=== PATIENT | male | born 1960 | race Caucasian/White ===

== ENCOUNTER 2023-02-16 03:38 | Inpatient (IN) | payer MEDICARE, MEDICAID ==
[~2023-02-16] VITALS: Ht 182.9 cm; Wt 88.9 kg
[2023-02-16] VITALS (10 sets, daily range): BP systolic 125–128; BP diastolic 60–98; PULSE 60–64; RESP 18–24; TEMP 97.2–97.5; O2SAT 94–99
[2023-02-16 04:23] LABS: Basophils # (auto) 0.1 10 ^3/uL (0-0.2); Eosinophils # (auto) 0 10 ^3/uL (0-0.8); Lymphocytes # (auto) 1.2 10 ^3/uL (0.4-5.4); Monocytes # (auto) 0.7 10 ^3/uL (0-1.3); Neutrophils % (auto) 78.9 % (37.0-80.0); Nucleated Red Blood Cells % 0.1 %
[2023-02-16 04:25] LABS: Eosinophils % (auto) 0.5 % (0.0-7.0); Hematocrit 43.3 % (41.0-53.0); Hemoglobin 13.9 g/dL (13.5-17.5); Lymphocytes % (auto) 12.4 % (10.0-50.0); Mean Corpuscular Hemoglobin 32.8 pg (28.0-32.0); Mean Corpuscular Hgb Conc. 32.2 g/dL (32.0-36.0); Monocytes % (auto) 7.2 % (0.0-12.0); Neutrophils # (auto) 7.8 10 ^3/uL (1.6-8.6); Red Blood Cells 4.24 10^6/uL (4.5-5.90); Red Cell Distribution Width 19.4 % (11.8-14.3); White Blood Cell 9.9 10^3/uL (4.4-10.8)
[2023-02-16 04:43] LABS: INR 1.53 (0.9-1.15); Partial Thromboplastin Time 30.9 SEC (24.5-34.5); Prothrombin Time 15.6 sec (9.3-11.8)
[2023-02-16 05:23] LABS: Alanine Aminotransferase 22 U/L (7-40); Albumin 4.3 g/dL (3.2-4.8); Alkaline Phosphatase 81 U/L (46-116); Anion Gap 10 (5-15); Aspartate Aminotransferase 24 U/L (13-40); BUN/Creatinine Ratio 15.1 (10.0-20.0); Bilirubin, Total 2.2 mg/dL (0.2-1.0); Blood Urea Nitrogen 28 mg/dL (9-23); Calcium 9.1 mg/dL (8.7-10.4); Carbon Dioxide 22 mmol/L (20-30); Chloride 110 mmol/L (98-107); Glucose 116 mg/dL (74-106); Magnesium 2.7 mg/dL (1.6-2.6); Potassium 3.7 mmol/L (3.5-5.1); Sodium 142 mmol/L (136-145)
[2023-02-16 05:24] LABS: Total Protein 6.9 g/dL (5.7-8.2)
[2023-02-16] MEDS ORDERED: FUROSEMIDE 40 MG/4 ML VIAL IV ONE (07:15)
[2023-02-16] MEDS ORDERED: LOSA50TA46 PO (09:00)
[2023-02-16] MEDS ORDERED: ATOR40TA52 PO (09:00)
[2023-02-16] MEDS ORDERED: SPIR25TA8 PO (09:00)
[2023-02-16] MEDS ORDERED: WARF4TAB69 PO (09:00)
[2023-02-16] MEDS ORDERED: METO25TA93 PO (09:00)
[2023-02-16] MEDS ORDERED: AMIO400T7 PO (09:00)
[2023-02-16] MEDS ORDERED: ACETAMINOPHEN 325 MG TAB PO PRN (09:00)
[2023-02-16] MEDS ORDERED: FUR20T PO (09:00)
[2023-02-16] MEDS ORDERED: WARF-111 PO (09:00)
[2023-02-16 09:18] LABS: Triglycerides 101 mg/dL (< 150)
[2023-02-16 09:19] LABS: LDL Cholesterol 70 mg/dL (< 100)
[2023-02-16 09:20] LABS: Cholesterol 106 mg/dL (< 200); HDL Cholesterol 24 mg/dL (40-59)
[2023-02-16] MEDS ORDERED: WARFARIN SODIUM 2 MG TAB PO SCH (10:00)
[2023-02-16] MEDS ORDERED: ENOXAPARIN SOD 40 MG/0.4 ML SYRINGE SC SCH (10:00)
[2023-02-16] MEDS ORDERED: PATIENTS OWN MEDICATION (Metoprolol Succinate (Metoprolol Succinate Er) 1 TAB) PO SCH (10:00)
[2023-02-16] MEDS ORDERED: PATIENTS OWN MEDICATION (Atorvastatin Calcium 1 TAB) PO SCH (10:00)
[2023-02-16] MEDS ORDERED: AMIODARONE HCL PO SCH (10:00)
[2023-02-16] MEDS: AMIODARONE HCL 200 MG TAB PO SCH (11:22)
[2023-02-16] MEDS: FUROSEMIDE 20 MG/2 ML VIAL IV SCH (11:22)
[2023-02-16] MEDS: LOSARTAN POTASSIUM 50 MG TAB PO SCH (11:22)
[2023-02-16] MEDS: METOPROLOL SUCCINATE XL 50 MG TAB PO SCH (11:23)
[2023-02-16 11:28] LABS: Urine Bacteria NONE SEEN /hpf (None Seen); Urine Blood Negative /uL (Negative); Urine Clarity Clear (Clear); Urine Color Yellow (Yellow); Urine Hyaline Cast MANY /lpf (0 - 2); Urine Mucus FEW (None Seen); Urine Protein, UAD 1+ (Negative); Urine Specific Gravity 1.022 (1.001-1.035); Urine WBC 1 /hpf (0 - 3); Urine pH 5.5 (5.0-8.0)
[2023-02-16] MEDS: LORazepam 0.5 MG TAB PO PRN (11:31)
[2023-02-16 11:51] LABS: Protein, Urine 54.7 mg/dL (0.0-11.9)
[2023-02-16 11:54] LABS: Creatinine, Urine 143.86 mg/dL (30.0-125.0)
[2023-02-16] MEDS ORDERED: WARFARIN SODIUM 2 MG TAB PO ONE (18:30)
[2023-02-16] MEDS: ALBUTEROL SULF 2.5 MG/0.5ML(0.5%) NEB SOLN NEB PRN (21:18)
[2023-02-16] MEDS: ATORVASTATIN 20 MG TAB PO SCH (21:42)
[2023-02-17] VITALS (10 sets, daily range): BP systolic 114–135; BP diastolic 81–97; PULSE 60–95; RESP 16–20; TEMP 97.4–98.7; O2SAT 60–99
[2023-02-17] MEDS: LORazepam 0.5 MG TAB PO PRN (01:59)
[2023-02-17 06:16] LABS: Anion Gap 11 (5-15); Carbon Dioxide 20 mmol/L (20-30); Chloride 109 mmol/L (98-107); Potassium 3.6 mmol/L (3.5-5.1); Sodium 140 mmol/L (136-145)
[2023-02-17 06:17] LABS: Calcium 8.8 mg/dL (8.7-10.4)
[2023-02-17 06:22] LABS: BUN/Creatinine Ratio 14.3 (10.0-20.0); Blood Urea Nitrogen 23 mg/dL (9-23); Glucose 88 mg/dL (74-106)
[2023-02-17 06:37] LABS: INR 1.48 (0.9-1.15); Partial Thromboplastin Time 30.3 SEC (24.5-34.5); Prothrombin Time 15.1 sec (9.3-11.8)
[2023-02-17 06:56] LABS: Basophils # (auto) 0.1 10 ^3/uL (0-0.2); Basophils % (auto) 0.7 % (0.0-2.0); Eosinophils # (auto) 0 10 ^3/uL (0-0.8); Eosinophils % (auto) 0.3 % (0.0-7.0); Hematocrit 40.3 % (41.0-53.0); Hemoglobin 13.3 g/dL (13.5-17.5); Lymphocytes % (auto) 9.6 % (10.0-50.0); Mean Corpuscular Hemoglobin 33.2 pg (28.0-32.0); Mean Corpuscular Volume 100.6 fL (80.0-100.0); Monocytes # (auto) 0.7 10 ^3/uL (0-1.3); Monocytes % (auto) 7.2 % (0.0-12.0); Neutrophils # (auto) 8.6 10 ^3/uL (1.6-8.6); Neutrophils % (auto) 82.2 % (37.0-80.0); Nucleated Red Blood Cells % 0.1 %; White Blood Cell 10.4 10^3/uL (4.4-10.8)
[2023-02-17] MEDS: AMIODARONE HCL 200 MG TAB PO SCH (10:17)
[2023-02-17] MEDS: LOSARTAN POTASSIUM 50 MG TAB PO SCH (10:17)
[2023-02-17] MEDS: METOPROLOL SUCCINATE XL 50 MG TAB PO SCH (10:18)
[2023-02-17] MEDS: FUROSEMIDE 20 MG/2 ML VIAL IV SCH (10:19)
[2023-02-17] MEDS ORDERED: FUROSEMIDE 20 MG/2 ML VIAL IV ONE (10:45)
[2023-02-17] MEDS: ALBUTEROL SULF 2.5 MG/0.5ML(0.5%) NEB SOLN NEB PRN (11:39)
[2023-02-17] MEDS ORDERED: WARFARIN SODIUM 5 MG TAB PO ONE (17:00)
[2023-02-17] MEDS: ONDANSETRON HCL 4 MG/2 ML VIAL IV PRN (21:27)
[2023-02-17] MEDS: MELATONIN 5 MG TAB PO SCH (22:00)
[2023-02-17] MEDS: ATORVASTATIN 20 MG TAB PO SCH (22:00)
[2023-02-18] VITALS (10 sets, daily range): BP systolic 105–129; BP diastolic 78–89; PULSE 60–63; RESP 16–22; TEMP 96–98.1; O2SAT 93–97
[2023-02-18] MEDS: ONDANSETRON HCL 4 MG/2 ML VIAL IV PRN (05:05)
[2023-02-18 06:13] LABS: Anion Gap 10 (5-15); Carbon Dioxide 23 mmol/L (20-30); Chloride 106 mmol/L (98-107); INR 1.8 (0.9-1.15); Partial Thromboplastin Time 32.2 SEC (24.5-34.5); Prothrombin Time 18.2 sec (9.3-11.8); Sodium 139 mmol/L (136-145)
[2023-02-18 06:19] LABS: BUN/Creatinine Ratio 18.4 (10.0-20.0); Glucose 100 mg/dL (74-106)
[2023-02-18 06:37] LABS: Calcium 8.8 mg/dL (8.7-10.4)
[2023-02-18 07:04] LABS: Blood Urea Nitrogen 34 mg/dL (9-23)
[2023-02-18] MEDS: FUROSEMIDE 40 MG/4 ML VIAL IV SCH (09:11)
[2023-02-18] MEDS: AMIODARONE HCL 200 MG TAB PO SCH (09:11)
[2023-02-18] MEDS: LOSARTAN POTASSIUM 50 MG TAB PO SCH (09:12)
[2023-02-18] MEDS: METOPROLOL SUCCINATE XL 50 MG TAB PO SCH (09:14)
[2023-02-18] MEDS ORDERED: PANTOPRAZOLE 40 MG TAB PO ONE (15:00)
[2023-02-18] MEDS ORDERED: MAALOX PLUS or MAALOX 30 ML PO PRN (15:00)
[2023-02-18] MEDS ORDERED: MAALOX PLUS or MAALOX 30 ML PO ONE (15:00)
[2023-02-18] MEDS ORDERED: WARFARIN SODIUM 2 MG TAB PO ONE (17:00)
[2023-02-18] MEDS: ATORVASTATIN 20 MG TAB PO SCH (22:32)
[2023-02-18] MEDS: MELATONIN 5 MG TAB PO SCH (22:32)
[2023-02-19] VITALS (8 sets, daily range): BP systolic 99–117; BP diastolic 75–84; PULSE 56–60; RESP 15–22; TEMP 36.8; O2SAT 92–97
[2023-02-19 06:58] LABS: Basophils # (auto) 0.1 10 ^3/uL (0-0.2); Basophils % (auto) 0.6 % (0.0-2.0); Eosinophils # (auto) 0.1 10 ^3/uL (0-0.8); Eosinophils % (auto) 0.7 % (0.0-7.0); Hematocrit 40.8 % (41.0-53.0); Hemoglobin 13.2 g/dL (13.5-17.5); Lymphocytes # (auto) 0.7 10 ^3/uL (0.4-5.4); Lymphocytes % (auto) 8.2 % (10.0-50.0); Mean Corpuscular Hemoglobin 32.7 pg (28.0-32.0); Mean Corpuscular Hgb Conc. 32.3 g/dL (32.0-36.0); Mean Corpuscular Volume 101.3 fL (80.0-100.0); Monocytes % (auto) 11.5 % (0.0-12.0); Neutrophils # (auto) 6.7 10 ^3/uL (1.6-8.6); Nucleated Red Blood Cells % 0.1 %; Red Blood Cells 4.03 10^6/uL (4.5-5.90); Red Cell Distribution Width 18.9 % (11.8-14.3); White Blood Cell 8.5 10^3/uL (4.4-10.8)
[2023-02-19 07:10] LABS: Chloride 104 mmol/L (98-107); Potassium 3.6 mmol/L (3.5-5.1); Sodium 137 mmol/L (136-145)
[2023-02-19 07:11] LABS: Anion Gap 9 (5-15); Calcium 8.5 mg/dL (8.7-10.4); Carbon Dioxide 24 mmol/L (20-30)
[2023-02-19 07:16] LABS: Glucose 101 mg/dL (74-106)
[2023-02-19 07:17] LABS: BUN/Creatinine Ratio 19.3 (10.0-20.0); Blood Urea Nitrogen 32 mg/dL (9-23); Magnesium 2.5 mg/dL (1.6-2.6)
[2023-02-19 08:20] LABS: INR 1.89 (0.9-1.15); Partial Thromboplastin Time 33.8 SEC (24.5-34.5); Prothrombin Time 19.4 sec (9.3-11.8)
[2023-02-19] MEDS: AMIODARONE HCL 200 MG TAB PO SCH (09:50)
[2023-02-19] MEDS: FUROSEMIDE 40 MG/4 ML VIAL IV SCH (09:50)
[2023-02-19] MEDS: LOSARTAN POTASSIUM 50 MG TAB PO SCH (09:51)
[2023-02-19] MEDS: METOPROLOL SUCCINATE XL 50 MG TAB PO SCH (09:52)
[2023-02-19] MEDS ORDERED: PANTOPRAZOLE 40 MG TAB PO SCH (10:00)
[2023-02-19] MEDS ORDERED: WARFARIN SODIUM 5 MG TAB PO ONE (17:00)
== END 2023-02-19 16:41 | DRG 291 ==
LOC: ER 03:38 → OVERFLOW 08:56 → CENTRAL 13:13 → TELE-CENTR 02-18 19:02
PROVIDERS: ADMIT Internal Medicine; ATTEND Internal Medicine
DX: I13.0 Hypertensive heart and chronic kidney disease with heart failure and stage 1 through stage 4 chronic kidney disease, or unspecified chronic kidney disease (principal); I50.23 Acute on chronic systolic (congestive) heart failure; J96.01 Acute respiratory failure with hypoxia; D68.59 Other primary thrombophilia; N17.9 Acute kidney failure, unspecified; N18.30 Chronic kidney disease, stage 3 unspecified; I48.91 Unspecified atrial fibrillation; I25.10 Atherosclerotic heart disease of native coronary artery without angina pectoris; E78.5 Hyperlipidemia, unspecified; F17.210 Nicotine dependence, cigarettes, uncomplicated; Z95.810 Presence of automatic (implantable) cardiac defibrillator; Z71.6 Tobacco abuse counseling
CPT/HCPCS: 36415; 71045; 76775; 80048; 80053; 80061; 81001; 82248; 82570; 83735; 83880; 83930; 84156; 84300; 84439; 84443; 84484; 85025; 85379; 85610; 85730; 87081; 93005; 93306; 94640; 96374; 96376; 97110; 97116; 97163; 97530; 99291; G0378; J2405

== ENCOUNTER 2023-02-25 05:23 | Inpatient (IN) | payer MEDICARE, MEDICAID ==
[~2023-02-25] VITALS: Ht 182.9 cm; Wt 91.0 kg
[~2023-02-25 05:23] MED LIST: AMIO400T7 PO; ATOR40TA52 PO; FUR20T PO; LOSA50TA46 PO; METO25TA93 PO; SPIR25TA8 PO; WARF-111 PO; WARF4TAB69 PO
[2023-02-25 07:06] LABS: INR 3.1 (0.9-1.15); Prothrombin Time 30.2 sec (9.3-11.8)
[2023-02-25 07:19] LABS: Alanine Aminotransferase 57 U/L (7-40); Alkaline Phosphatase 182 U/L (46-116); Anion Gap 8 (5-15); Aspartate Aminotransferase 27 U/L (13-40); BUN/Creatinine Ratio 17.8 (10.0-20.0); Blood Urea Nitrogen 27 mg/dL (9-23); Calcium 8.8 mg/dL (8.7-10.4); Carbon Dioxide 25 mmol/L (20-30); Chloride 109 mmol/L (98-107); Glucose 107 mg/dL (74-106); Potassium 4.1 mmol/L (3.5-5.1); Sodium 142 mmol/L (136-145)
[2023-02-25 07:20] LABS: Monocytes # (auto) 0.8 10 ^3/uL (0-1.3); Monocytes % (auto) 7.5 % (0.0-12.0); Total Protein 6.3 g/dL (5.7-8.2)
[2023-02-25 07:22] LABS: Basophils # (auto) 0.1 10 ^3/uL (0-0.2); Basophils % (auto) 0.7 % (0.0-2.0); Eosinophils # (auto) 0 10 ^3/uL (0-0.8); Eosinophils % (auto) 0.4 % (0.0-7.0); Hematocrit 43.6 % (41.0-53.0); Lymphocytes # (auto) 0.9 10 ^3/uL (0.4-5.4); Lymphocytes % (auto) 8.5 % (10.0-50.0); Mean Corpuscular Hemoglobin 32.5 pg (28.0-32.0); Mean Corpuscular Hgb Conc. 32.1 g/dL (32.0-36.0); Mean Corpuscular Volume 101.3 fL (80.0-100.0); Neutrophils # (auto) 9.2 10 ^3/uL (1.6-8.6); Neutrophils % (auto) 82.9 % (37.0-80.0); Red Cell Distribution Width 18.4 % (11.8-14.3); White Blood Cell 11.1 10^3/uL (4.4-10.8)
[2023-02-25 07:25] VITALS: PULSE 60; RESP 20; O2SAT 98
[2023-02-25 07:36] VITALS: PULSE 60; RESP 17; O2SAT 97
[2023-02-25 08:51] LABS: Urine Bacteria None Seen /hpf (None Seen)
[2023-02-25] MEDS ORDERED: levoFLOXacin 750MG 150 ML IV ONE (12:00)
[2023-02-25] MEDS ORDERED: DOCUSATE SOD 100 MG CAP PO PRN (12:45)
[2023-02-25] MEDS ORDERED: ACETAMINOPHEN 325 MG TAB PO PRN (12:45)
[2023-02-25] MEDS ORDERED: NITROGLYCERIN 0.4 MG SL TAB SL PRN (12:45)
[2023-02-25] MEDS ORDERED: MORPHINE SULFATE INJ 2 MG/ml SYRG IV PRN (12:45)
[2023-02-25] MEDS ORDERED: ONDANSETRON HCL 4 MG/2 ML VIAL IV PRN (12:45)
[2023-02-25] MEDS ORDERED: hydrALAZINE HCL 20 MG/ML VL IV PRN (13:00)
[2023-02-25 13:39] LABS: Urine Clarity CLEAR (Clear); Urine Color Yellow (Yellow); Urine Protein, UAD 1+ (Negative); Urine Specific Gravity 1.022 (1.001-1.035)
[2023-02-25 13:40] LABS: Urine Blood Negative /uL (Negative); Urine pH 5.5 (5.0-8.0)
[2023-02-25 13:43] LABS: Urine Budding Yeast Few /hpf (None Seen); Urine Sperm PRESENT /hpf (None Seen)
[2023-02-25 13:45] LABS: Amphetamine Screen, Urine Neg (NEGATIVE); Barbiturate Scree,Urine Neg (NEGATIVE); Benzodiazephine Screen, Urine Neg (NEGATIVE); Cocaine Screen, Urine Neg (NEGATIVE)
[2023-02-25 13:46] LABS: Cannabinoid Screen, Urine Pos (NEGATIVE); Opiate Scree,Urine Neg (NEGATIVE); Phencyclidine Screen, Urine Neg (NEGATIVE)
[2023-02-25 13:52] LABS: Urine WBC 3 /hpf (0 - 3)
[2023-02-25] MEDS ORDERED: LORazepam 2MG/ML-1ML VIAL IV PRN (15:30)
[2023-02-25] MEDS: LORazepam 2MG/ML-1ML VIAL IV PRN (16:29)
[2023-02-25] MEDS: FUROSEMIDE 20 MG/2 ML VIAL IV SCH (17:48)
[2023-02-25 19:21] VITALS: PULSE 60; RESP 20; O2SAT 95
[2023-02-25] MEDS ORDERED: TEMAZEPAM 15 MG CAP PO ONE (21:00)
[2023-02-26] MEDS: LORazepam 2MG/ML-1ML VIAL IV PRN ×2 (00:08→08:27)
[2023-02-26 05:05] LABS: Basophils # (auto) 0.1 10 ^3/uL (0-0.2); Basophils % (auto) 0.7 % (0.0-2.0); Eosinophils # (auto) 0 10 ^3/uL (0-0.8); Eosinophils % (auto) 0.1 % (0.0-7.0); Hematocrit 44.6 % (41.0-53.0); Lymphocytes # (auto) 1.1 10 ^3/uL (0.4-5.4); Lymphocytes % (auto) 7.2 % (10.0-50.0); Mean Corpuscular Hemoglobin 31.9 pg (28.0-32.0); Mean Corpuscular Hgb Conc. 31.5 g/dL (32.0-36.0); Mean Corpuscular Volume 101.4 fL (80.0-100.0); Monocytes # (auto) 1.1 10 ^3/uL (0-1.3); Monocytes % (auto) 7.3 % (0.0-12.0); Neutrophils # (auto) 12.3 10 ^3/uL (1.6-8.6); Neutrophils % (auto) 84.7 % (37.0-80.0); Red Cell Distribution Width 18.2 % (11.8-14.3); White Blood Cell 14.6 10^3/uL (4.4-10.8)
[2023-02-26 05:19] LABS: Partial Thromboplastin Time 36.6 SEC (24.5-34.5)
[2023-02-26 05:20] LABS: Alanine Aminotransferase 51 U/L (7-40); Alkaline Phosphatase 153 U/L (46-116); Anion Gap 10 (5-15); BUN/Creatinine Ratio 15.2 (10.0-20.0); Blood Urea Nitrogen 24 mg/dL (9-23); Carbon Dioxide 24 mmol/L (20-30); Chloride 108 mmol/L (98-107); Glucose 96 mg/dL (74-106); Potassium 4.2 mmol/L (3.5-5.1); Sodium 142 mmol/L (136-145)
[2023-02-26 05:21] LABS: Albumin 3.8 g/dL (3.2-4.8); Aspartate Aminotransferase 28 U/L (13-40); Bilirubin, Total 2.4 mg/dL (0.2-1.0); Total Protein 6.2 g/dL (5.7-8.2)
[2023-02-26 05:48] LABS: INR 2.49 (0.9-1.15); Prothrombin Time 25.1 sec (9.3-11.8)
[2023-02-26] MEDS: FUROSEMIDE 20 MG/2 ML VIAL IV SCH (06:09)
[2023-02-26] MEDS ORDERED: VANCOMYCIN PER PHARMACY 0 MG IV SCH (07:45)
[2023-02-26] MEDS: PANTOPRAZOLE 40 MG/10 ML VIAL INJ IV SCH (08:26)
[2023-02-26] MEDS: AMIODARONE HCL 200 MG TAB PO SCH (08:27)
[2023-02-26] MEDS: METOPROLOL SUCCINATE XL 50 MG TAB PO SCH (08:27)
[2023-02-26] MEDS ORDERED: VANCOMYCIN 1GM/200ML 200 ML IV ONE (08:45)
[2023-02-26] MEDS ORDERED: cefTRIAXone 1GM/50ML D5W 50 ML IV SCH (09:00)
[2023-02-26] MEDS ORDERED: AZITHROMYCIN 500MG/ 250ML 250 ML IV SCH (10:00)
[2023-02-26] MEDS ORDERED: CEFEPIME 1GM/ 50ML 50 ML IV SCH (10:00)
[2023-02-26] MEDS ORDERED: HALOPERIDOL LACTATE 5 MG/ML INJ VIAL IM PRN (14:15)
[2023-02-26 14:42] LABS: Free T4 (Free Thyroxine) 1.74 ng/dL (0.89-1.76); T3 Total 0.94 ng/mL (0.60-1.81)
[2023-02-26] MEDS ORDERED: ERGOCALCIFEROL 50,000 UNIT(1.25MG) CAP PO SCH (14:45)
[2023-02-26 17:00] VITALS: PULSE 60
[2023-02-26] MEDS: WARFARIN SODIUM 2 MG TAB PO ONE ×2 (17:00→22:23)
[2023-02-26 17:26] VITALS: BP 117/86; PULSE 60; RESP 18; TEMP 97.3; O2SAT 100
[2023-02-26 17:27] VITALS: BP 107/86; PULSE 60; RESP 18; TEMP 97.3; O2SAT 100
[2023-02-26] MEDS: CEFEPIME 1GM/ 50ML 50 ML IV SCH (19:20)
[2023-02-26] MEDS: FUROSEMIDE 40 MG/4 ML VIAL IV SCH (19:20)
[2023-02-26 20:00] VITALS: PULSE 60; RESP 16; O2SAT 98
[2023-02-26 22:00] VITALS: BP 126/92; PULSE 62; RESP 20; TEMP 96.7; O2SAT 96
[2023-02-26] MEDS: ATORVASTATIN 20 MG TAB PO SCH (22:23)
[2023-02-26] MEDS: SACUBITRIL-VALSARTAN 24mg/26mg TAB PO SCH (22:23)
[2023-02-26] MEDS: QUEtiapine FUMARATE 25 MG TAB PO SCH (22:23)
[2023-02-27] VITALS (7 sets, daily range): BP systolic 101–108; BP diastolic 66–73; PULSE 60–61; RESP 18–20; TEMP 97.4–98.8; O2SAT 92–99
[2023-02-27] MEDS ORDERED: VANCOMYCIN 1GM/200ML 200 ML IV SCH (04:00)
[2023-02-27] MEDS: FUROSEMIDE 40 MG/4 ML VIAL IV SCH ×2 (05:41→17:27)
[2023-02-27] MEDS: CEFEPIME 1GM/ 50ML 50 ML IV SCH ×2 (05:41→17:26)
[2023-02-27 05:56] LABS: Basophils # (auto) 0.1 10 ^3/uL (0-0.2); Basophils % (auto) 0.8 % (0.0-2.0); Eosinophils # (auto) 0 10 ^3/uL (0-0.8); Eosinophils % (auto) 0.3 % (0.0-7.0); Hematocrit 42.3 % (41.0-53.0); Lymphocytes # (auto) 0.8 10 ^3/uL (0.4-5.4); Lymphocytes % (auto) 7.9 % (10.0-50.0); Mean Corpuscular Hemoglobin 33.3 pg (28.0-32.0); Mean Corpuscular Volume 100.9 fL (80.0-100.0); Monocytes # (auto) 0.8 10 ^3/uL (0-1.3); Monocytes % (auto) 7.9 % (0.0-12.0); Neutrophils # (auto) 8.9 10 ^3/uL (1.6-8.6); Neutrophils % (auto) 83.1 % (37.0-80.0); Red Blood Cells 4.19 10^6/uL (4.5-5.90); Red Cell Distribution Width 17.6 % (11.8-14.3); White Blood Cell 10.7 10^3/uL (4.4-10.8)
[2023-02-27 05:59] LABS: INR 1.96 (0.9-1.15); Partial Thromboplastin Time 35.3 SEC (24.5-34.5); Prothrombin Time 19.7 sec (9.3-11.8)
[2023-02-27 06:10] LABS: Alanine Aminotransferase 40 U/L (7-40); Alkaline Phosphatase 113 U/L (46-116); Anion Gap 10 (5-15); BUN/Creatinine Ratio 15.4 (10.0-20.0); Blood Urea Nitrogen 23 mg/dL (9-23); Calcium 8.5 mg/dL (8.5-10.1); Carbon Dioxide 23 mmol/L (20-30); Chloride 110 mmol/L (98-107); Glucose 77 mg/dL (74-106); Potassium 3.7 mmol/L (3.5-5.1); Sodium 143 mmol/L (136-145)
[2023-02-27 06:12] LABS: Albumin 3.2 g/dL (3.2-4.8); Aspartate Aminotransferase 27 U/L (13-40); Bilirubin, Total 2.6 mg/dL (0.2-1.0); Total Protein 5.4 g/dL (5.7-8.2)
[2023-02-27] MEDS: CYANOCOBALAMIN 500 MCG TAB PO SCH (09:39)
[2023-02-27] MEDS: PANTOPRAZOLE 40 MG/10 ML VIAL INJ IV SCH (09:39)
[2023-02-27] MEDS: SACUBITRIL-VALSARTAN 24mg/26mg TAB PO SCH ×2 (09:39→21:24)
[2023-02-27] MEDS: AMIODARONE HCL 200 MG TAB PO SCH (09:39)
[2023-02-27] MEDS: METOPROLOL SUCCINATE XL 50 MG TAB PO SCH (09:44)
[2023-02-27] MEDS ORDERED: WARFARIN SODIUM 2 MG TAB PO ONE (17:00)
[2023-02-27] MEDS: QUEtiapine FUMARATE 25 MG TAB PO SCH (21:24)
[2023-02-27] MEDS: ATORVASTATIN 20 MG TAB PO SCH (21:24)
[2023-02-27] MEDS: LORazepam 2MG/ML-1ML VIAL IV PRN (23:15)
[2023-02-28 05:00] VITALS: BP 98/68; PULSE 60; RESP 20; TEMP 97.8; O2SAT 96
[2023-02-28] MEDS: FUROSEMIDE 40 MG/4 ML VIAL IV SCH (06:00)
[2023-02-28] MEDS: CEFEPIME 1GM/ 50ML 50 ML IV SCH (06:23)
[2023-02-28 06:25] LABS: INR 2.28 (0.9-1.15); Prothrombin Time 22.7 sec (9.3-11.8)
[2023-02-28 06:26] LABS: Basophils # (auto) 0.1 10 ^3/uL (0-0.2); Basophils % (auto) 0.8 % (0.0-2.0); Eosinophils # (auto) 0.1 10 ^3/uL (0-0.8); Eosinophils % (auto) 0.6 % (0.0-7.0); Hematocrit 41.7 % (41.0-53.0); Hemoglobin 13.8 g/dL (13.5-17.5); Lymphocytes # (auto) 0.9 10 ^3/uL (0.4-5.4); Lymphocytes % (auto) 8.5 % (10.0-50.0); Mean Corpuscular Hemoglobin 33.2 pg (28.0-32.0); Mean Corpuscular Hgb Conc. 33.2 g/dL (32.0-36.0); Mean Corpuscular Volume 100.2 fL (80.0-100.0); Monocytes % (auto) 9.1 % (0.0-12.0); Neutrophils # (auto) 8.6 10 ^3/uL (1.6-8.6); Red Blood Cells 4.16 10^6/uL (4.5-5.90); Red Cell Distribution Width 17.2 % (11.8-14.3); White Blood Cell 10.6 10^3/uL (4.4-10.8)
[2023-02-28 06:33] LABS: Alanine Aminotransferase 39 U/L (7-40); Albumin 3.1 g/dL (3.2-4.8); Alkaline Phosphatase 95 U/L (46-116); Anion Gap 9 (5-15); Aspartate Aminotransferase 28 U/L (13-40); BUN/Creatinine Ratio 14.5 (10.0-20.0); Blood Urea Nitrogen 21 mg/dL (9-23); Calcium 8.1 mg/dL (8.5-10.1); Carbon Dioxide 25 mmol/L (20-30); Chloride 107 mmol/L (98-107); Glucose 116 mg/dL (74-106); Potassium 3.2 mmol/L (3.5-5.1); Sodium 141 mmol/L (136-145)
[2023-02-28 06:34] LABS: Bilirubin, Total 1.2 mg/dL (0.2-1.0); Total Protein 5.3 g/dL (5.7-8.2)
[2023-02-28 08:00] VITALS: PULSE 60; RESP 18
[2023-02-28] MEDS ORDERED: POTASSIUM EFFERVESENT TAB 25 MEQ PO ONE (08:15)
[2023-02-28] MEDS ORDERED: CEPH500C PO ×2 (10:30)
[2023-02-28] MEDS ORDERED: QUET1TAB11 PO (10:30)
[2023-02-28] MEDS ORDERED: CYAN500T3 PO (10:30)
[2023-02-28] MEDS ORDERED: SACU1TAB PO (10:30)
[2023-02-28] MEDS ORDERED: ERGO1CAP23 PO (10:30)
[2023-02-28] MEDS: SACUBITRIL-VALSARTAN 24mg/26mg TAB PO SCH (10:48)
[2023-02-28] MEDS: AMIODARONE HCL 200 MG TAB PO SCH (10:48)
[2023-02-28] MEDS: METOPROLOL SUCCINATE XL 50 MG TAB PO SCH (10:49)
[2023-02-28] MEDS: CYANOCOBALAMIN 500 MCG TAB PO SCH (10:49)
[2023-02-28] MEDS ORDERED: LEVO750T8 PO (15:31)
[2023-02-28 16:33] VITALS: BP 109/78; PULSE 60; TEMP 36.6
[2023-02-28] MEDS ORDERED: WARFARIN SODIUM 2 MG TAB PO ONE (17:00)
[2023-02-28] MEDS ORDERED: CEFEPIME 1GM/ 50ML 50 ML IV SCH (22:00)
== END 2023-02-28 17:50 | DRG 177 ==
LOC: ER 05:23 → EDBD 05:23 → TELE 12:46 → TELE-CENTR 02-26 16:43 → CENTRAL 02-27 14:01
PROVIDERS: ADMIT Internal Medicine; ATTEND Specialist
DX: J69.0 Pneumonitis due to inhalation of food and vomit (principal); G92.8 Other toxic encephalopathy; I50.23 Acute on chronic systolic (congestive) heart failure; N17.0 Acute kidney failure with tubular necrosis; N39.0 Urinary tract infection, site not specified; I13.0 Hypertensive heart and chronic kidney disease with heart failure and stage 1 through stage 4 chronic kidney disease, or unspecified chronic kidney disease; D68.9 Coagulation defect, unspecified; I48.92 Unspecified atrial flutter; R78.81 Bacteremia; B96.20 Unspecified Escherichia coli [E. coli] as the cause of diseases classified elsewhere; I27.20 Pulmonary hypertension, unspecified; I08.1 Rheumatic disorders of both mitral and tricuspid valves; Z66 Do not resuscitate; I25.10 Atherosclerotic heart disease of native coronary artery without angina pectoris; E55.9 Vitamin D deficiency, unspecified; F17.210 Nicotine dependence, cigarettes, uncomplicated; I48.91 Unspecified atrial fibrillation; E78.5 Hyperlipidemia, unspecified; E11.22 Type 2 diabetes mellitus with diabetic chronic kidney disease; N18.30 Chronic kidney disease, stage 3 unspecified; G25.3 Myoclonus; E53.8 Deficiency of other specified B group vitamins; R55 Syncope and collapse; K76.0 Fatty (change of) liver, not elsewhere classified; E03.8 Other specified hypothyroidism; T45.515A Adverse effect of anticoagulants, initial encounter; I25.2 Old myocardial infarction; Z79.01 Long term (current) use of anticoagulants; Z95.0 Presence of cardiac pacemaker; Z86.73 Personal history of transient ischemic attack (TIA), and cerebral infarction without residual deficits; Y92.89 Other specified places as the place of occurrence of the external cause
CPT/HCPCS: 36415; 70450; 71045; 72125; 76705; 80053; 80307; 81001; 82140; 82248; 82306; 82550; 82607; 82962; 83605; 83880; 84439; 84443; 84480; 84484; 85025; 85610; 85730; 87040; 87081; 87086; 87088; 87186; 93005; 93925; 95819; 96365; 97110; 97116; 97163; 97530; C9113; G0378; J1956